=== PATIENT | female | born 1980 | race Caucasian/White ===

== ENCOUNTER 2021-09-12 17:46 | Inpatient (IN) | payer OTHER ==
[~2021-09-12] VITALS: Ht 162.6 cm; Wt 71.2 kg
[2021-09-12] MEDS ORDERED: PRENATAL TABLE1 EAC1 PO (19:18)
[2021-09-12] MEDS ORDERED: PROBIOTIC1 EAC1 PO (19:18)
== END 2021-09-14 13:50 | disposition home or self-care (01) | DRG 807 ==
LOC: LDR 17:46 → SURG-SUITE 17:46 → OB/GYN 09-13 00:04 → SURG-SUITE 09-13 01:20 → OB/GYN 09-27 15:53
PROVIDERS: ADMIT Obstetrics & Gynecology; ATTEND Obstetrics & Gynecology
PROC: 10E0XZZ Delivery of Products of Conception, External Approach (ICD-10-PCS; principal; 2021-09-12)
PROC: 0HQ9XZZ Repair Perineum Skin, External Approach (ICD-10-PCS; 2021-09-12)
PROC: 4A1HXFZ Monitoring of Products of Conception, Cardiac Rhythm, External Approach (ICD-10-PCS; 2021-09-12)
DX: O70.0 First degree perineal laceration during delivery (principal); Z37.0 Single live birth; Z3A.37 37 weeks gestation of pregnancy

== ENCOUNTER → 2023-02-09 | Emergency (ER) | payer OTHER ==
[~2023-02-09] VITALS: Ht 162.6 cm; Wt 75.7 kg
[~2023-02-09] MED LIST: CEFADROXIL500 MG PO; PRENATAL TABLE1 EAC1 PO; PROBIOTIC1 EAC1 PO
== END | disposition home or self-care (01) ==
LOC: ER 07:23
DX: B34.8 Other viral infections of unspecified site (principal)

== ENCOUNTER 2023-02-15 11:58 | Inpatient (IN) | payer OTHER ==
[~2023-02-15] VITALS: Ht 162.6 cm; Wt 73.5 kg
[2023-02-16] MEDS ORDERED: Ursodiol 300MG CAPSU PO (09:29)
== END 2023-02-16 10:15 | disposition home or self-care (01) | DRG 831 ==
LOC: LDR 11:58 → OB/GYN 03-07 08:59
PROVIDERS: ADMIT Obstetrics & Gynecology; ATTEND Obstetrics & Gynecology
PROC: 4A1HXCZ Monitoring of Products of Conception, Cardiac Rate, External Approach (ICD-10-PCS; principal; 2023-02-15)
DX: O26.613 Liver and biliary tract disorders in pregnancy, third trimester (principal); K83.1 Obstruction of bile duct; O98.513 Other viral diseases complicating pregnancy, third trimester; Z20.822 Contact with and (suspected) exposure to COVID-19; Z3A.37 37 weeks gestation of pregnancy; B34.9 Viral infection, unspecified